=== PATIENT | male | born 1930 | race Caucasian/White ===

== ENCOUNTER 2016-11-07 05:35 | Inpatient (IN) | payer OTHER ==
--- NOTE | 2016-11-07 05:44 | EDPHY ---
H & P Time Seen by Provider: 11/07/16 05:39 HPI/ROS: HPI The patient presents as a stroke alert for slurred speech which he began to notice at midnight last night. He is brought in by paramedics. Glucose was normal. He was found to be hypertensive. He went to bed and when he awoke, he continued to have slurring of his speech, thus 911 was called. He denies any current complaint. He is not on home oxygen. He says he does not have any medical problems. REVIEW OF SYSTEMS Constitutional: No fever, no chills. Eyes: No discharge. ENT: No sore throat. Cardiovascular: No chest pain, no palpitations. Respiratory: No cough, no shortness of breath. Gastrointestinal: No abdominal pain, no vomiting. Genitourinary: Mcconnell in place Musculoskeletal: No back pain. Skin: No rashes. Neurological: No headache. PMHx: Chronic indwelling Mcconnell catheter, prior history of stroke, states that he does not take any medications Soc Hx: Lives at home with his , son lives with them in provides in-home care, however had a stroke 2 days ago and is admitted to the hospital, no smoking history PHYSICAL General Appearance: Alert, no distress Eyes: Pupils equal and round no pallor or injection ENT, Mouth: Mucous membranes dry Respiratory: There are no retractions, lungs are clear to auscultation Cardiovascular: Regular rate and rhythm Gastrointestinal: Abdomen is soft and non-tender, no masses, bowel sounds normal Neurological: Alert, oriented to person only, does not know his full birthday, cranial nerves 2-12 intact, 5/5 strength in his upper upper extremities, 4+ out of 5 strength in his lower extremities Skin: Warm and dry, wound on his forehead Musculoskeletal: Neck is supple non tender Extremities: Lower extremity edema bilaterally with compression stockings in place Psychiatric: Patient is oriented X 3, there is no agitation Source: Patient, EMS Constitutional: Initial Vital Signs Temperature (C) 38.3 C 11/07/16 06:16 Heart Rate 84 11/07/16 06:16 Respiratory Rate 20 11/07/16 06:16 Blood Pressure 169/95 H 11/07/16 06:16 O2 Sat (%) 92 11/07/16 06:16 O2 Delivery Mode Oxymask O2 (L/minute) 10 Allergies/Adverse Reactions: No Known Allergies Allergy (Unverified 11/07/16 06:16) Home Medications: Medication Instructions Recorded NK [No Known Home Meds] 11/07/16 Medical Decision Making - Diagnostics EKG Interpretation: EKG: Complete interpretation has been separately recorded in the [facility] archive. Summary impression: Left bundle-branch block Imaging Results: Chest x-ray single view shows no cardiomegaly, pacer wires in place, no obvious infiltrate or effusion, interpreted by me, radiology interpretation is pending. CT scan of head shows no acute findings, discussed with Dr. Lilly of Radiology. CT chest with IV contrast demonstrates no pulmonary embolism, aorta measures 4 cm though no evidence of dissection, some ground-glass opacities, discussed with Dr. Lilly of Radiology. Differential Diagnosis: This is an 85-year-old male with possible past medical history of a stroke of some sort who presents brought in by ambulance as a stroke alert for slurring of speech which began at midnight last night and continued when he awoke this morning. The patient's speech seems fluid. He is somewhat confused and does not know where he is or the date today. He is hypertensive on arrival and hypoxic. He has taken to the CT scanner for a stat CT scan of his head, this shows no acute bleeding and no obvious large vessel infarct. When he returned to the room, it was noted that his Mcconnell was draining malodorous cloudy urine. The catheter was removed and new catheter was placed, Mcconnell temperature was 38 F. he was given fluids and ceftriaxone for possible pneumonia or UTI. he was persistently hypoxic even with a face mask to the high 80s. Chest x-ray was obtained which showed no infiltrate or cardiomegaly, this raises suspicion of pulmonary embolism. CT scan of the chest with IV contrast demonstrated no pulmonary embolism, no pneumonia, no pulmonary edema, with some ground-glass opacities. The cause of his hypoxia is really unclear. He is a [facility] patient. I called the [facility] doctor line and they recommended admission at this hospital without transfer. I have discussed the case with the hospitalist Dr. Isabel and we plan to admit the patient. - Data Points Laboratory Results: Laboratory Results 11/07/16 05:45 11/07/16 05:45 11/07/16 11/07/16 11/07/16 05:50 05:45 05:45 WBC RBC Hgb Hct MCV MCH MCHC RDW Plt Count MPV Neut % (Auto) Lymph % (Auto) [place] % (Auto) Eos % (Auto) Baso % (Auto) Nucleat RBC Rel Count Absolute Neuts (auto) Absolute Lymphs (auto) Absolute Monos (auto) Absolute Eos (auto) Absolute Basos (auto) Absolute Nucleated RBC Immature Gran % Immature Gran # D-Dimer VBG Lactic Acid 1.7 mmol/L mmol/L (0.7-2.1) Sodium 142 mEq/L mEq/L (134-144) Potassium 3.8 mEq/L mEq/L (3.5-5.2) Chloride 107 mEq/L mEq/L (97-110) Carbon Dioxide 23 mEq/l mEq/l (22-31) Anion Gap 12 mEq/L mEq/L (8-16) BUN 28 mg/dL H mg/dL (7-23) Creatinine 1.3 mg/dL mg/dL (0.7-1.3) Estimated GFR 52 Glucose 107 mg/dL H mg/dL (70-100) Calcium 8.7 mg/dL mg/dL (8.5-10.4) Total Bilirubin 1.2 mg/dL mg/dL (0.1-1.4) AST 25 IU/L IU/L (17-59) ALT 27 IU/L IU/L (21-72) Alkaline Phosphatase 103 IU/L IU/L (38-126) Troponin I 0.133 ng/mL H ng/mL (0-0.034) NT-Pro-B Natriuret Pep 4970 pg/mL H pg/mL (0-450) Total Protein 8.5 g/dL H g/dL (6.3-8.2) Albumin 3.5 g/dL g/dL (3.5-5.0) Urine Color RICKEY Urine Appearance TURBID Urine pH 6.0 (5.0-7.5) Ur Specific [place] 1.015 (1.002-1.030) Urine Protein 1+ H (NEGATIVE) Urine Ketones 1+ H (NEGATIVE) Urine Blood 1+ H (NEGATIVE) Urine Nitrate POSITIVE H (NEGATIVE) Urine Bilirubin NEGATIVE (NEGATIVE) Urine Urobilinogen NEGATIVE EU EU (0.2-1.0) Ur Leukocyte Esterase 3+ H (NEGATIVE) Urine RBC 50-182 /hpf H /hpf (0-3) Urine WBC 50-182 /hpf H /hpf (0-3) Ur Epithelial Cells NONE SEEN /lpf /lpf (NONE-1+) Urine Bacteria 4+ /hpf H /hpf (NONE SEEN) Urine Mucus TRACE /lpf /lpf (NONE-1+) Urine Glucose NEGATIVE (NEGATIVE) 11/07/16 11/07/16 05:45 05:40 WBC 11.90 10^3/uL H 10^3/uL (3.80-9.50) RBC 3.81 10^6/uL L 10^6/uL (4.40-6.38) Hgb 11.9 g/dL L g/dL (13.7-17.5) Hct 36.9 % L % (40.0-51.0) MCV 96.9 fL fL (81.5-99.8) MCH 31.2 pg pg (27.9-34.1) MCHC 32.2 g/dL L g/dL (32.4-36.7) RDW 13.3 % % (11.5-15.2) Plt Count 323 10^3/uL 10^3/uL (150-400) MPV 9.5 fL fL (8.7-11.7) Neut % (Auto) 73.8 % % (39.3-74.2) Lymph % (Auto) 19.1 % % (15.0-45.0) [place] % (Auto) 5.9 % % (4.5-13.0) Eos % (Auto) 0.0 % L % (0.6-7.6) Baso % (Auto) 0.5 % % (0.3-1.7) Nucleat RBC Rel Count 0.0 % % (0.0-0.2) Absolute Neuts (auto) 8.79 10^3/uL H 10^3/uL (1.70-6.50) Absolute Lymphs (auto) 2.27 10^3/uL 10^3/uL (1.00-3.00) Absolute Monos (auto) 0.70 10^3/uL 10^3/uL (0.30-0.80) Absolute Eos (auto) 0.00 10^3/uL L 10^3/uL (0.03-0.40) Absolute Basos (auto) 0.06 10^3/uL 10^3/uL (0.02-0.10) Absolute Nucleated RBC 0.00 10^3/uL 10^3/uL (0-0.01) Immature Gran % 0.7 % % (0.0-1.1) Immature Gran # 0.08 10^3/uL 10^3/uL (0.00-0.10) D-Dimer 2.74 ug/mLFEU H ug/mLFEU (0.00-0.50) VBG Lactic Acid Sodium Potassium Chloride Carbon Dioxide Anion Gap BUN Creatinine Estimated GFR Glucose Calcium Total Bilirubin AST ALT Alkaline Phosphatase Troponin I NT-Pro-B Natriuret Pep Total Protein Albumin Urine Color Urine Appearance Urine pH Ur Specific [place] Urine Protein Urine Ketones Urine Blood Urine Nitrate Urine Bilirubin Urine Urobilinogen Ur Leukocyte Esterase Urine RBC Urine WBC Ur Epithelial Cells Urine Bacteria Urine Mucus Urine Glucose Medications Given: Discontinued Medications Sodium Chloride (Ns) 1,000 mls @ 0 mls/hr IV ONCE ONE; Wide Open PRN Reason: Protocol Stop: 11/07/16 05:54 Last Admin: 11/07/16 06:27 Dose: 1,000 mls Ceftriaxone Sodium/Dextrose (Rocephin 1 Gm (Premix)) 50 mls @ 100 mls/hr IV EDNOW ONE PRN Reason: Protocol Stop: 11/07/16 06:44 Last Admin: 11/07/16 06:26 Dose: 50 mls Sodium Chloride (Ns) 1,000 mls @ 0 mls/hr IV ONCE ONE; Wide Open PRN Reason: Protocol Stop: 11/07/16 06:17 Last Admin: 11/07/16 06:50 Dose: Not Given Departure - Departure Disposition: [facility] Inpatient Acute Clinical Impression: Hypoxia, Confusion, Dehydration, Elevated troponin, Elevated brain natriuretic peptide (BNP) level UTI (urinary tract infection) Qualifiers: Urinary tract infection type: catheter-associated UTI Indwelling urinary catheter type: indwelling urethral catheter Encounter type: initial encounter Qualified Code(s): T83.511A - Infection and inflammatory reaction due to indwelling urethral catheter, initial encounter Condition: Fair
[2016-11-07] MEDS ORDERED: NS 1,000 ML IV ONE ×2 (05:53→06:16)
--- NOTE | 2016-11-07 05:56 | CPEKG ---
Heart Rate: 88 RR Interval: 682 P-R Interval: 200 QRSD Interval: 156 QT Interval: 428 QTC Interval: 518 P [place]: 63 QRS [place]: 45 EKG Severity - ABNORMAL ECG - EKG Impression: SINUS RHYTHM EKG Impression: LEFT BUNDLE BRANCH BLOCK Electronically Signed By: Saúl Noel 07-Nov-2016 10:51:29
[2016-11-07 06:01] LABS: % IMMATURE GRANULYOCYTES 0.7 % (0.0-1.1); ABSOLUTE IMMATURE GRANULOCYTES 0.08 10^3/uL (0.00-0.10); ADD DIFF? NO; ADD MORPH? NO; ADD SCAN? NO; ATYPICAL LYMPHOCYTE FLAG 10 (0-99); FRAGMENT RBC FLAG 0 (0-99); HEMATOCRIT 36.9 % (40.0-51.0); HEMOGLOBIN 11.9 g/dL (13.7-17.5); LEFT SHIFT FLG 0 (0-99); LIPEMIA HEMOLYSIS FLAG 80 (0-99); MEAN CELL HEMOGLOBIN 31.2 pg (27.9-34.1); MEAN CELL HEMOGLOBIN CONCENTR. 32.2 g/dL (32.4-36.7); MEAN CELL VOLUME 96.9 fL (81.5-99.8); MEAN PLATELET VOLUME 9.5 fL (8.7-11.7); PLATELET CLUMPS FLAG 0 (0-99); PLATELET COUNT 323 10^3/uL (150-400); RED BLOOD CELL COUNT 3.81 10^6/uL (4.40-6.38); RED CELL DISTRIBUTION WIDTH 13.3 % (11.5-15.2)
[2016-11-07 06:07] LABS: COLOR AMBER; LEUKOCYTE ESTERASE,URINE 3+ (NEGATIVE); NITRITE,URINE POSITIVE (NEGATIVE)
[2016-11-07 06:07] LABS: ALANINE AMINOTRANSFERASE 27 IU/L (21-72); ALBUMIN 3.5 g/dL (3.5-5.0); ALKALINE PHOSPHATASE 103 IU/L (38-126); ANION GAP 12 mEq/L (8-16); ASPARTATE AMINOTRANSFERASE 25 IU/L (17-59); BILIRUBIN,TOTAL 1.2 mg/dL (0.1-1.4); CALCIUM 8.7 mg/dL (8.5-10.4); CARBON DIOXIDE 23 mEq/l (22-31); CHLORIDE 107 mEq/L (97-110); CREATININE 1.3 mg/dL (0.7-1.3); GLOMERULAR FILTRATION RATE 52; GLUCOSE 107 mg/dL (70-100); POTASSIUM 3.8 mEq/L (3.5-5.2); SODIUM 142 mEq/L (134-144); TOTAL PROTEIN 8.5 g/dL (6.3-8.2)
[2016-11-07 06:16] LABS: BACTERIA 4+ /hpf (NONE SEEN); MUCUS TRACE /lpf (NONE-1+); RBC,URINE 50-182 /hpf (0-3); WBC,URINE 50-182 /hpf (0-3)
[2016-11-07 06:18] LABS: TROPONIN I 0.133 ng/mL (0-0.034)
[2016-11-07] MEDS ORDERED: IOPAMIDOL (ISOVUE 370) 100 ML BTL IV ONE (06:29)
[2016-11-07] MEDS ORDERED: ACETAMINOPHEN 500 MG TAB ONE (07:14)
[2016-11-07] MEDS ORDERED: ONDANSETRON DISINTEGRATING 4 MG TAB PO PRN (07:22)
[2016-11-07] MEDS ORDERED: ONDANSETRON 4 MG/2 ML VIAL IVP PRN (07:22)
[2016-11-07] MEDS ORDERED: ACETAMINOPHEN 325 MG TAB PO PRN (07:22)
[2016-11-07] MEDS ORDERED: NS 500 ML IV ONE (07:22)
[2016-11-07] MEDS ORDERED: ACETAMINOPHEN 500 MG TAB PO ONE (07:55)
--- NOTE | 2016-11-07 08:36 | GHP ---
[f rep st] HISTORY AND PHYSICAL DATE OF ADMISSION: 11/07/2016 CHIEF COMPLAINT: Slurred speech. HISTORY OF PRESENT ILLNESS: An 85-year-old male with baseline dementia who presents when family not iced slurred speech in him early the morning of presentation. Patient is unable to clearly describe a history of events but the son, who is one of the less engaged care providers, describes that his mom called saying that the dad had slurred speech. When he presented he did note that the father wa s having difficulty speaking with fluency. They called 911 and patient was brought to the emergency department. At home, per the son's description, the patient has been eating and drinking normally and functioning reasonably well. In the ED, the patient is denying any shortness of breath, chest p ain, abdominal discomfort. Describes 1 episode of diarrhea the day before presentation. Denies any dysuria. Describes chronic lower extremity edema which he believes is unchanged. Denies any activ e numbness, tingling in his lower or upper extremities. Does describe some discomfort and deflectio n of his left wrist after being asked. Denies any knowledge of pain at that joint previous to my as magraret. PAST MEDICAL HISTORY: 1. CKD. Most recent creatinine checked on 09/26/2016 is 0.9. 2. AAA, being followed by [facility]. 3. Dementia. 4. History of pulmonary embolism. 5. Hypertension. 6. Permanent pacemaker. SOCIAL HISTORY: Patient lives with his and 1 of his sons who is a care provider. Does not smo ke, does not drink and does not use illicit drugs or marijuana. ADVANCED DIRECTIVES: The son describes the patient is full cor, full tube. He and his brother woul d be medical decision makers. REVIEW OF SYSTEMS: A 10-point review of systems is negative with the exception of that reported in the HPI. PHYSICAL EXAMINATION: VITAL SIGNS: Blood pressure 167/99, heart rate 93, respiratory rate 20, 94% on a 12 L Oxymizer. Patient is febrile at 38.3. GENERAL: This is a cachectic appearing elderly ma le in no acute distress. HEENT: Notable for markedly dry mucous membranes. Eye exam is negative f or any icterus. The patient has what appears to be a recent biopsy wound on his right scalp. CARDI AC: The patient is regular rate and rhythm. There is a quiet systolic murmur appreciated. PULMONA RY: Has diminished respiratory effort, but is clear to auscultation bilaterally. GASTROINTESTINAL: Positive bowel sounds. The patient is thin and nontender to palpation all 4 quadrants. MUSCULOSK ELETAL: Notable for 4+ pitting edema up to the knees. The patient has marked erythema and warmth o f his left wrist and several of his MCP joints. He is having pain on flexion. SKIN: No obvious sk in breakdown is noted on skin exam. NEUROLOGIC: He is alert and oriented x1. PSYCHIATRIC: He is pleasant and cooperative on interview and examination. LABORATORY DATA: White count 11.9, hematocrit 36.9, platelets of 323. Creatinine is 1.3, again rec ent baseline 0.9, BUN is 28, troponin is 0.133, BNP is 4970. UA: White count is 50-182, 4+ bacteri a, 3+ leuk esterase, 1+ blood. CT of the chest, which I personally reviewed and interpreted, shows no acute infiltrates or edema. Noncontrast CT of the head shows no acute abnormality. Radiology; f inal reports are pending on both. EKG, which I personally reviewed and interpreted, shows sinus rhy thm, normal axis, with a left bundle branch block. No acute ST-T changes. ASSESSMENT AND PLAN: This is an 85-year-old male with a presentation complaint of slurred speech. 1. Sepsis. Patient is presenting with leukocytosis and fever. Presumed source is urinary. Will s end urine for culture and empirically treat with IV ceftriaxone. Can attempt to get microbiologic d ravi from [facility]. Will aggressively fluid resuscitate with a liter of normal saline now following hi s oxygen saturations and repeat if tolerated. 2. Pyelonephritis. Patient has systemic symptoms with the source and some discomfort in his abdome n per his report in the emergency department. Again, will treat with ceftriaxone, and follow cultur e data. 3. Acute kidney injury presumed secondary to hypovolemia. Will fluid resuscitate with normal salin e and recheck. 4. Indeterminate troponin. Patient is not able to relate to me a cardiac history. His EKG shows l eft bundle branch block with no acute changes. Will recheck a troponin, follow on telemetry and miguelito ck a transthoracic echocardiogram to rule out any segmental wall motion abnormalities. There is a c omparison from [facility] in the last several months. 5. Dementia. Patient appears to be at his baseline. The son is describing improve mentation even since arrival to the emergency department. Will monitor closely. Patient will need a bed alarm. 6. Acute gout. Patient has warm, painful joint at the left wrist and a couple MCP joints. Will tr eat with oral prednisone now. Cannot give indomethacin in the setting of acute kidney injury. Will await additionally [facility] reconciliation. 7. Prophylaxis with Lovenox. DIET: Cardiac. DISPOSITION: I expect greater than 2 midnights as the patient is presenting with sepsis, urinary tr act infection and several other systemic conditions requiring monitoring and treatment. I have disc ussed the case with the emergency room physician. Patient will be triaged to the PCU for cardiac mo nitoring, trending of his cardiac enzymes and treatment for sepsis. /[id number]/MODL
--- NOTE | 2016-11-07 12:09 | ECHO ---
[id number] + + [address] : : [place] [address] : : [phone] + + Adult Echocardiographic Report + -+ :Name: Konrad BIANCHI Date: 11/07/2016 09:18 AM : : Hospital Admission Number: [id number] Location: ER 2: :: 07/05/1931 Gender: Male Height: 72 in : :Age: 85 yrs Race: WH Weight: 165 lb : :Reason For Study: Eval LV Fx : : BSA: 2.0 meters2 : :History: Hypoxia, Pacemaker, Elevated BNP : + -+ MMode/2D Measurements \T\ Calculations IVSd: 0.87 cm LVIDd: 4.4 cm FS: 34.3 % Ao root diam: 3.0 cm LVPWd: 0.98 cm LVIDs: 2.9 cm EDV(Teich): 86.3 ml ESV(Teich): 31.4 ml EF(Teich): 63.6 % LVOT diam: 2.0 cm LVOT area: 3.1 cm2 Normal Measurement Values: + + :LVIDd (3.5-5.7cm) IVSd (0.6-1.1cm) LVPWd (0.6-1.1cm) Aortic Root (2.0-3.7cm)Left Atrium (1.5-4.0cm): :LV Vol(d) (76-115ml) LV Vol(s) (29-48ml) Ejec Fraction (50-65%)PV Armond (0.6- 1.2m/s) TV Armond (0.4-1.0m/s) : :MV E Armond (0.8-1.0m/s)MV A Armond (0.3-1.0m/s)LVOT Armond (0.7-1.2m/s) Asc Ao Armond ( 0.9-1.8m/s) : + + Doppler Measurements \T\ Calculations MV E max armond: Ao V2 max: LV V1 max: SV(LVOT): 50.3 cm/sec 189.7 cm/sec 84.2 cm/sec 56.9 ml MV A max armond: Ao max P.4 mmHgLV V1 max P.9 cm/sec Ao mean P.5 mmHg2.8 mmHg MV E/A: 0.61 Ao V2 mean: LV V1 mean P.5 cm/sec 2.0 mmHg Ao V2 VTI: 42.3 cm LV V1 mean: 59.3 cm/sec HARIKA(I,D): 1.3 cm2 LV V1 VTI: 18.1 cm HARIKA(V,D): 1.4 cm2 TR max armond: 233.0 cm/sec TR max P.7 mmHg RAP systole: 5.0 mmHg RVSP(TR): 26.7 mmHg Left Ventricle The left ventricle is normal in size. There is normal left ventricular wall thickness. The left ventricular ejection fraction is normal. There is Doppler evidence for diastolic dysfunction. Ejection Fraction = 64%. LV motion consistent with pacemaker activation. Right Ventricle The right ventricle is normal in size and function. There is a pacemaker lead in the right ventricle. Atria The left atrium is mildly dilated. Right atrial size is normal. Mitral Valve There is mild mitral annular calcification. There is no evidence of mitral valve prolapse. There is no mitral valve stenosis. There is trace to mild mitral regurgitation. Tricuspid Valve There is trace to mild tricuspid regurgitation. Right ventricular systolic pressure is normal. Aortic Valve Moderate Aortic Valve Calcification. There is no aortic stenosis. There is no aortic insufficiency. Pulmonic Valve The pulmonic valve is normal in structure and function. There is no pulmonic valvular regurgitation. Great Vessels The aortic root is normal size. Pericardium/Pleural There is no pericardial effusion. Conclusion A complete two-dimensional transthoracic echocardiogram was performed (2D, M-mode, Doppler and color flow Doppler). The left ventricular ejection fraction is normal. There is Doppler evidence for diastolic dysfunction. Ejection Fraction = 64%. LV motion consistent with pacemaker activation. The right ventricle is normal in size and function. There is a pacemaker lead in the right ventricle. The left atrium is mildly dilated. There is mild mitral annular calcification. There is trace to mild mitral regurgitation. There is trace to mild tricuspid regurgitation. Right ventricular systolic pressure is normal. Moderate Aortic Valve Calcification There is no pericardial effusion. Final Reading Physician: Joel Howard signed on 11/07/2016 12:08 PM Ordering Physician: Cecilia Isabel Performed By: Zain Taylor, SONJACS
[2016-11-07] MEDS: predniSONE 20 MG TAB PO SCH (12:22)
[2016-11-07] MEDS: ENOXAPARIN 40 MG/0.4 ML SYR SC SCH (12:22)
--- NOTE | 2016-11-07 14:59 | HOSPPROG ---
Hospitalist Progress Note Assessment/Plan: Patient seen and examined. Admitted for urinary tract infection/ pyelonephritis. His slurred speech has not resolved. He is feeling better. Will continue the IV antibiotics and watch him another day. Troponins are flat Objective: Vital Signs Temp Pulse Resp BP Pulse Ox 36.9 C 80 12 126/70 H 94 11/07/16 12:12 11/07/16 12:12 11/07/16 12:12 11/07/16 12:12 11/07/16 12:12 11/06/16 11/07/16 11/08/16 05:59 05:59 05:59 Intake Total 1999 Balance 1999 ICD10 Worksheet Patient Problems: Problems Problem Status Onset Confusion Acute Dehydration Acute Elevated brain natriuretic peptide (BNP) level Acute Elevated troponin Acute Hypoxia Acute UTI (urinary tract infection) Acute
[2016-11-07] MEDS: GABAPENTIN 300 MG CAP PO SCH (21:18)
[2016-11-08 04:20] LABS: HEMOGLOBIN 9.4 g/dL (13.7-17.5); MEAN CELL HEMOGLOBIN 31.1 pg (27.9-34.1); MEAN CELL HEMOGLOBIN CONCENTR. 31.3 g/dL (32.4-36.7); MEAN CELL VOLUME 99.3 fL (81.5-99.8); RED BLOOD CELL COUNT 3.02 10^6/uL (4.40-6.38); RED CELL DISTRIBUTION WIDTH 13.6 % (11.5-15.2)
[2016-11-08 04:40] LABS: ANION GAP 8 mEq/L (8-16); CARBON DIOXIDE 24 mEq/l (22-31); CHLORIDE 110 mEq/L (97-110); GLOMERULAR FILTRATION RATE > 60; GLUCOSE 120 mg/dL (70-100); POTASSIUM 3.9 mEq/L (3.5-5.2); SODIUM 142 mEq/L (134-144)
[2016-11-08] MEDS: LEVOTHYROXINE 50 MCG TAB PO SCH (06:07)
[2016-11-08] MEDS: predniSONE 20 MG TAB PO SCH (10:03)
[2016-11-08] MEDS: ATORVASTATIN CALCIUM 20 MG TAB PO SCH (10:03)
[2016-11-08] MEDS: GABAPENTIN 300 MG CAP PO SCH ×2 (10:03→21:17)
[2016-11-08] MEDS: ENOXAPARIN 40 MG/0.4 ML SYR SC SCH (10:03)
[2016-11-08] MEDS: LISINOPRIL 10 MG TAB PO SCH (10:03)
--- NOTE | 2016-11-08 13:09 | HOSPPROG ---
Hospitalist Progress Note Assessment/Plan: * complicated urinary tract infection * appears to be improving on ceftriaxone * cultures pending * chronic indwelling Mcconnell * encephalopathy * due to infection * resolved * sepsis * resolved * acute gout * fingers to feel better * continue prednisone for a couple more days * mild troponin elevation * due to sepsis * history of thoracic aortic aneurysm * history of dementia * history pulmonary embolism * DVT prophylaxis - Lovenox Subjective: feels better Objective: Vital Signs Temp Pulse Resp BP Pulse Ox 36.5 C 71 13 95/53 L 92 11/08/16 12:00 11/08/16 12:00 11/08/16 12:00 11/08/16 12:00 11/08/16 12:00 Laboratory Results 11/08/16 04:08 11/08/16 04:08 11/07/16 11/08/16 11/09/16 05:59 05:59 05:59 Intake Total 3410 960 Output Total 500 175 Balance 2910 785 ICD10 Worksheet Patient Problems: Problems Problem Status Onset Confusion Acute Dehydration Acute Elevated brain natriuretic peptide (BNP) level Acute Elevated troponin Acute Hypoxia Acute UTI (urinary tract infection) Acute
[2016-11-09] MEDS: LEVOTHYROXINE 50 MCG TAB PO SCH (05:13)
[2016-11-09] MEDS: GABAPENTIN 300 MG CAP PO SCH (08:48)
[2016-11-09] MEDS: ATORVASTATIN CALCIUM 20 MG TAB PO SCH (08:48)
[2016-11-09] MEDS: predniSONE 20 MG TAB PO SCH (08:48)
[2016-11-09] MEDS: LISINOPRIL 10 MG TAB PO SCH (08:48)
[2016-11-09] MEDS: ENOXAPARIN 40 MG/0.4 ML SYR SC SCH (08:48)
[2016-11-09 09:00] VITALS: RESP 17; O2SAT 93
[2016-11-09] MEDS ORDERED: POTASSIUM CL 20 MEQ TAB PO SCH (09:00)
[2016-11-09] MEDS ORDERED: FUROSEMIDE 20 MG TAB PO SCH (09:00)
--- NOTE | 2016-11-09 10:34 | WOCRNPDOC ---
CESAR Advanced Assessment Note - Skin Integrity Problem, Advanced Assess Right Forehead Dressing Type: Adaptic Touch, Gauze, Other Other Dressing Type: silicone tape Exudate Amount: Scant Exudate Color: Reddish/Yellow Exudate Characteristic(s): Serosanguinous Integumentary Issue Intervention: Dressing Changed, Silver Gel Applied Mariana Wound Tissue: Scaly [place] Wound Swelling: None Wound Bed Color: Red Wound Bed Constitution: Hypergranulation Wound Edges: Well Defined Site Odor: None Site Measurement - Head-to-Toe Length X Width X Depth (cm): 1.1cmx1.9cmx0.2cm ( raised above skin level) Skin Integrity Problem Comment: Wound on R forehead, appearance consistent w/ biopsy site, though patient reports this wound was caused by a fall. Upon assessment, this is a circular-shaped wound w/ well-defined margins. No necrosis and no apparent swelling noted. Wound bed comprised of hypergranulation tissue, 0.2cm above skin level at its highest point along the medial aspect from 1-5 o'clock. Mariana-wound tissue is dry and scaly, w/ flat, lichenous skin growths. Site cleansed and re-covered w/ Silvasorb gel and Allevyn. Depending upon the eitology of this wound, patient should see speech instructor upon dc for possible application of silver nitrate or steroid cream to decrease formation of hypergranulation. Wound care will follow up with this patient on 11/14 if he remains inpatient. Left Lateral Knee Dressing Type: Open to Air Exudate Amount: Scant Exudate Color: Brown Exudate Characteristic(s): Dried [place] Wound Tissue: Intact Mariana Wound Swelling: None Wound Bed Color: Brown Wound Bed Constitution: Scab Wound Edges: Epithelizing Skin Integrity Problem Comment: Linear, residual scab noted on L lateral knee r/ t fall. Most of wound bed has re-epithelialized, and there is only a small scab remaining. Report given to boarder steam Kim to continue to monitor site; no wound care needed at this time. Gluteal Cleft Dressing Type: Open to Air Exudate Amount: None Exudate Characteristic(s): None Integumentary Issue Intervention: Dressing Applied Mar[place] Wound Tissue: Blanching, Intact [place]iana Wound Swelling: None Wound Bed Color: Brown Wound Bed Constitution: Scab Skin Integrity Problem Comment: Small area of scattered, pinpoint scabs noted in patient's upper gluteal cleft. These abrasions are more consistent w/ scratching r/t dry skin, and do not appear to be pressure-related. Mariana-wound skin is intact and blanching, and patient denies any pain to site. No need for wound care to follow this wound at this time.
[2016-11-09 12:36] VITALS: BP 108/54; PULSE 72; TEMP 97.9
--- NOTE | 2016-11-09 13:27 | PDIAF ---
- Diagnosis Diagnosis: uti Code Status: Full Code - Medication Management Discharge Medications: Medications to Continue on Transfer Furosemide [Lasix 20 MG (*)] 20 mg PO DAILY 11/07/16 [Last Taken Unknown] Gabapentin [Neurontin 300 MG (*)] 600 mg PO BID 11/07/16 [Last Taken Unknown] Levothyroxine [Synthroid 50 mcg (*)] 50 mcg PO DAILY06 11/07/16 [Last Taken Unknown] Lisinopril [Zestril 10 mg (*)] 10 mg PO DAILY 11/07/16 [Last Taken Unknown] Potassium Cl [Klor-Con 20 meq (*)] 20 meq PO DAILY 11/07/16 [Last Taken Unknown] Simvastatin [Zocor] 40 mg PO DAILY 11/07/16 [Last Taken Unknown] Cefuroxime Axetil [Ceftin] 250 mg PO BID #16 tab 11/09/16 [Last Taken Unknown] Discharge Medications: Refer to the Discharge Home Medication list for PRN reason. - Orders Services needed: Home Care, Physical Therapy, Occupational Therapy Home Care Face to Face: I certify that this patient was under my care and that I had the required [id number] encounter meeting the encounter requirements on the discharge day. My findings support the fact that the patient is homebound as defined in CMS Chapter 7 Medicare Benefits Manual 30.1.1, The condition of the patient is such that there exists a normal inability to leave home and consequently, leaving home would require a considerable and taxing effort. Diet Texture: Regular Texture Diet, Thin Liquids, Meds Whole in Puree, Meds Crushed in Puree - Follow Up Care Current Providers and Referrals: Patient,NotPresent [Primary Care Provider] - As per Instructions
--- NOTE | 2016-11-09 13:55 | GDS ---
[f rep st] DISCHARGE SUMMARY DISCHARGE DIAGNOSES: 1. Complicated urinary tract infection. 2. Chronic indwelling Mcconnell. 3. Encephalopathy due to infection. 4. Sepsis resolved. 5. Acute gout. 6. Mild troponin elevation due to sepsis. 7. History of dementia. HISTORY: This is an 85-year-old male, who presented with altered mental status. HOSPITAL COURSE: Patient was diagnosed with a urinary tract infection. He was given antibiotics. He improved. He is probably close to his baseline which does require 24 hour care. He will be set up with home health. He did have also some gout in his fingers. This improved significantly with prednisone. We will gi ve him a couple more days of prednisone to finish a 4 day course. DISPOSITION: Home. DISCHARGE MEDICATIONS: He is to resume all his home medicines. In addition, will be given predniso ne 40 mg daily for 2 more days as well as Ceftin 250 mg twice daily for 8 more days to complete a 10 day course. TIME SPENT: Greater than 30 minutes was spent on discharge. /[id number]/MODL
--- NOTE | 2016-11-12 14:03 | PQFORM ---
PHYSICIAN QUERY FORM Needs Your Response This query form is being sent to you to assure this patient record is coded properly. Please respond to the question below: OXIDIZED FINISH PLATER QUESTION: Dr Gallegos Can this patients UTI be clarified as Catheter Associated (CAUTI) _x_ Yes __ No __ Unable to determine __ Other (please document ) Thank You Jannet DELGADO Configuration Management Advisor INSTRUCTIONS FOR RESPONSE: Answer question by clicking on the "Edit Document" button. Move cursor to area below the stars. When complete, hit "Save." Click on the "Sign" button, then click "Sign" again. Type in your PIN and hit "Enter." MTDD
== END 2016-11-09 16:32 | disposition home health service (06) | DRG 698 ==
LOC: EDBD → MERGE 07:21 → F2W 10:04
PROVIDERS: ADMIT Hospitalist; ATTEND Hospitalist
DX: T83.511A Infection and inflammatory reaction due to indwelling urethral catheter, initial encounter (principal); A41.9 Sepsis, unspecified organism; N39.0 Urinary tract infection, site not specified; G93.49 Other encephalopathy; M10.9 Gout, unspecified; R09.02 Hypoxemia; F03.90 Unspecified dementia, unspecified severity, without behavioral disturbance, psychotic disturbance, mood disturbance, and anxiety; I71.4 Abdominal aortic aneurysm, without rupture; I12.9 Hypertensive chronic kidney disease with stage 1 through stage 4 chronic kidney disease, or unspecified chronic kidney disease; N18.9 Chronic kidney disease, unspecified; Z86.711 Personal history of pulmonary embolism; Z95.0 Presence of cardiac pacemaker; Z96.0 Presence of urogenital implants; Z86.73 Personal history of transient ischemic attack (TIA), and cerebral infarction without residual deficits
CPT/HCPCS: 82947-QW; 92610-GN; 96374; 97110-GP; 97116-GP; 97161-GP; 97165-GO; 97530-GP; G8978-GP-CL; G8979-GP-CJ; J0696; J1650; Q9967